=== PATIENT | female | born 1955 | race Hispanic/Latino ===

== ENCOUNTER 2019-11-09 11:19 | Emergency (ER) | payer BC ==
--- OUTSIDE RECORDS SUMMARY | 2019-11-09 11:22 | XMS REPORT ---
:1955 [facility] Address [address] [place] [address] [address] [place] [address] Care Team Providers Name Role Phone Unavailable Unavailable Unavailable Payers Payer Name Policy Type Policy Number Effective Date Expiration Date Problems This patient has no known problems. Allergies, Adverse Reactions, Alerts Allergy Allergy Status Severity Reaction(s) Onset Inactive Treating Comments Name Type Date Date Clinician No Known DA Active U 2018-08 Allergies -18 00:00:0 0 Medications This patient has no known medications.
--- NOTE | 2019-11-09 12:02 | ER ---
Nurse's Notes [facility] Name: Kateryna Medley Age: 64 yrs Sex: Female : 1955 Arrival Date: 11/09/2019 Time: 11:23 Bed 17 Private MD: Diagnosis: Urticaria, unspecified Presentation: 11/08 11:28 Chief complaint: Patient states: rashes all over my arms and body since yesterday. This ca1 morning it went to face. C/O itchiness all over. Denies SOB. Coronavirus screen: The patient has NOT traveled to [place] in the past 14 days. The patient has NOT had contact with known and/or suspected case of Coronavirus. Ebola Screen: Patient negative for fever greater than or equal to 101.5 degrees Fahrenheit, and additional compatible Ebola Virus Disease symptoms Patient denies exposure to infectious person. Patient denies travel to an Ebola-affected area in the 21 days before illness onset. No symptoms or risks identified at this time. Onset: The symptoms/episode began/occurred yesterday. Anaphylaxis evaluation, no signs or symptoms of anaphylaxis were noted. Initial Sepsis Screen: Does the patient meet any 2 criteria? No. Patient's initial sepsis screen is negative. Does the patient have a suspected source of infection? No. Patient's initial sepsis screen is negative. Risk Assessment: Do you want to hurt yourself or someone else? Patient reports no desire to harm self or others. Onset of symptoms was November 08, 2019. Care prior to arrival: None. 11:28 Method Of Arrival: Ambulatory ca1 11:28 Acuity: ERNESTINA 4 ca1 Historical: - Allergies: 11:37 No Known Allergies; ca1 - Home Meds: 11:37 [place] Thyroid 210 mg Oral 1 tab daily [Active]; pantoprazole 40 mg oral TbEC 1 tab ca1 once daily [Active]; magnesium oxide 400 mg Oral cap daily [Active]; triamterene-hydrochlorothiazid 37.5-25 mg Oral cap 1 cap once daily [Active]; valsartan 80 mg oral tab 1 tab once daily [Active]; Byvalson 5mg/80mg 1 tab [Active]; clonazepam 0.5 mg Oral tab [Active]; gabapentin 600 mg oral tab 1 tab 3 times per day [Active]; aspirin 81 mg Oral chew 1 tab once daily [Active]; amitriptyline 25 mg Oral tab 1 tab once daily [Active]; - PMHx: 11:37 Hypertension; Herniated Discs; ca1 - PSHx: 11:37 Cataract Surgery L eye; ca1 - Immunization history:: Adult Immunizations up to date, Pneumococcal vaccine is not up to date, Flu vaccine is up to date. - Social history:: Smoking status: Patient denies any tobacco usage or history of. Screenin:08 Abuse screen: Denies threats or abuse. Denies injuries from another. Nutritional mg2 screening: No deficits noted. Tuberculosis screening: Fall Risk None identified. Assessment: 12:09 General: Appears in no apparent distress. comfortable, Behavior is calm, cooperative. mg2 Pain: Denies pain. Neuro: Level of Consciousness is awake, alert, obeys commands, Oriented to person, place, time, situation. Cardiovascular: Capillary refill < 3 seconds Patient's skin is warm and dry. Respiratory: Airway is patent Respiratory effort is even, unlabored, Respiratory pattern is regular, symmetrical, Breath sounds are clear bilaterally. GI: No signs and/or symptoms were reported involving the gastrointestinal system. : No signs and/or symptoms were reported regarding the genitourinary system. EENT: No signs and/or symptoms were reported regarding the EENT system. Derm: Skin is intact, is healthy with good turgor, Skin is pink, warm \T\ dry. normal, Rash noted that is itchy, red, urticaria, on whole body. Musculoskeletal: Circulation, motion, and sensation intact. Capillary refill. Vital Signs: 11:28 BP 131 / 106; Pulse 77; Resp 18 S; Temp 97.4(TE); Pulse Ox 95% on R/A; Weight 95.71 kg ca1 (R); Height 5 ft. 0 in. (152.40 cm); 11:28 Body Mass Index 41.21 (95.71 kg, 152.40 cm) ca1 ED Course: 11:23 Patient arrived in ED. fj1 11:32 Triage completed. ca1 11:35 Lili Laurent FNP-C is PHCP. snw 11:35 Solitario Grossman MD is Attending Physician. snw 11:37 Arm band placed on right wrist. ca1 11:56 Raffi Vasquez RN is Primary Nurse. mg2 12:08 Patient has correct armband on for positive identification. mg2 12:08 No provider procedures requiring assistance completed. Patient did not have IV access mg2 during this emergency room visit. Administered Medications: 12:04 Drug: predniSONE 40 mg Route: PO; mg2 12:07 Follow up: Response: No adverse reaction; Medication administered at discharge. mg2 12:05 Drug: Atarax 50 mg Route: PO; mg2 12:07 Follow up: Response: No adverse reaction; Medication administered at discharge. mg2 Outcome: 11:58 Discharge ordered by MD. coelho 12:10 Discharged to home ambulatory. mg2 12:10 Condition: stable 12:10 Discharge instructions given to patient, Instructed on discharge instructions, follow up and referral plans. medication usage, Demonstrated understanding of instructions, follow-up care, medications, Prescriptions given X 2. 12:10 Patient left the ED. mg2 Signatures: Lili Laurent, VISION SPECIALIST-C VISION SPECIALIST-Csnw Raffi Vasquez RN RN mg2 Gisele Carballo RN RN ca1 Jovanny Salvador fj1 Corrections: (The following items were deleted from the chart) 11:43 11:28 BP 131 / 106; Pulse 77bpm; Resp 18bpm; Spontaneous; Pulse Ox 95% RA; Temp 76F; ca1 95.71 kg Reported; Height 5 ft. 0 in.; BMI: 41.2; ca1 11:44 11:28 BP 131 / 106; Pulse 77bpm; Resp 18bpm; Spontaneous; Pulse Ox 95% RA; Temp 97.4F ca1 Temporal; 95.71 kg Reported; Height 5 ft. 0 in.; BMI: 41.2; ca1
[2019-11-09] MEDS ORDERED: predniSONE 20 MG TAB ONE (12:03)
--- NOTE | 2019-11-09 12:03 | EDPHYS ---
Physician Documentation [facility] Name: Kateryna Medley Age: 64 yrs Sex: Female : 1955 Arrival Date: 11/09/2019 Time: 11:23 Bed 17 Private MD: ED Physician Solitario Grossman HPI: 11/08 11:53 This 64 yrs old Female presents to ER via Ambulatory with complaints of Hives. snw 11:53 Onset: The symptoms/episode began/occurred suddenly, yesterday, itching became worse, snw rash comes and goes. Associated signs and symptoms: Pertinent negatives: congestion, cough, fever, seizure, sore throat, wheezing. Modifying factors: The patient symptoms are alleviated by nothing. The patient has not experienced similar symptoms in the past. It is unknown whether or not the patient has recently seen a physician. no new medications, only new food was flatbread pizza. Historical: - Allergies: 11:37 No Known Allergies; ca1 - Home Meds: 11:37 [place] Thyroid 210 mg Oral 1 tab daily [Active]; pantoprazole 40 mg oral TbEC 1 tab ca1 once daily [Active]; magnesium oxide 400 mg Oral cap daily [Active]; triamterene-hydrochlorothiazid 37.5-25 mg Oral cap 1 cap once daily [Active]; valsartan 80 mg oral tab 1 tab once daily [Active]; Byvalson 5mg/80mg 1 tab [Active]; clonazepam 0.5 mg Oral tab [Active]; gabapentin 600 mg oral tab 1 tab 3 times per day [Active]; aspirin 81 mg Oral chew 1 tab once daily [Active]; amitriptyline 25 mg Oral tab 1 tab once daily [Active]; - PMHx: 11:37 Hypertension; Herniated Discs; ca1 - PSHx: 11:37 Cataract Surgery L eye; ca1 - Immunization history:: Adult Immunizations up to date, Pneumococcal vaccine is not up to date, Flu vaccine is up to date. - Social history:: Smoking status: Patient denies any tobacco usage or history of. ROS: 11:53 Constitutional: Negative for fever, chills, and weight loss, Eyes: Negative for injury, snw pain, redness, and discharge, ENT: Negative for injury, pain, and discharge, Neck: Negative for injury, pain, and swelling, Cardiovascular: Negative for chest pain, palpitations, and edema, Respiratory: Negative for shortness of breath, cough, wheezing, and pleuritic chest pain, Abdomen/GI: Negative for abdominal pain, nausea, vomiting, diarrhea, and constipation, Back: Negative for injury and pain, : Negative for injury, bleeding, discharge, and swelling, MS/Extremity: Negative for injury and deformity, Neuro: Negative for headache, weakness, numbness, tingling, and seizure, Psych: Negative for depression, anxiety, suicide ideation, homicidal ideation, and hallucinations. 11:53 Skin: Positive for rash, diffusely. Exam: 11:49 Constitutional: This is a well developed, well nourished patient who is awake, alert, snw and in no acute distress. Eyes: Pupils equal round and reactive to light, extra-ocular motions intact. Lids and lashes normal. Conjunctiva and sclera are non-icteric and not injected. Cornea within normal limits. Periorbital areas with no swelling, redness, or edema. ENT: Nares patent. No nasal discharge, no septal abnormalities noted. Tympanic membranes are normal and external auditory canals are clear. Oropharynx with no redness, swelling, or masses, exudates, or evidence of obstruction, uvula midline. Mucous membranes moist. Neck: Trachea midline, no thyromegaly or masses palpated, and no cervical lymphadenopathy. Supple, full range of motion without nuchal rigidity, or vertebral point tenderness. No Meningismus. Chest/axilla: Normal chest wall appearance and motion. Nontender with no deformity. No lesions are appreciated. Cardiovascular: Regular rate and rhythm with a normal S1 and S2. No gallops, murmurs, or rubs. Normal PMI, no JVD. No pulse deficits. Respiratory: Lungs have equal breath sounds bilaterally, clear to auscultation and percussion. No rales, rhonchi or wheezes noted. No increased work of breathing, no retractions or nasal flaring. Abdomen/GI: Soft, non-tender, with normal bowel sounds. No distension or tympany. No guarding or rebound. No evidence of tenderness throughout. Back: No spinal tenderness. No costovertebral tenderness. Full range of motion. MS/ Extremity: Pulses equal, no cyanosis. Neurovascular intact. Full, normal range of motion. Neuro: Awake and alert, GCS 15, oriented to person, place, time, and situation. Cranial nerves II-XII grossly intact. Motor strength 5/5 in all extremities. Sensory grossly intact. Cerebellar exam normal. Normal gait. Psych: Awake, alert, with orientation to person, place and time. Behavior, mood, and affect are within normal limits. 11:49 Head/Face: Normocephalic, atraumatic. 11:49 Skin: Appearance: normal except for affected area, urticaria, and is diffusely located. Vital Signs: 11:28 BP 131 / 106; Pulse 77; Resp 18 S; Temp 97.4(TE); Pulse Ox 95% on R/A; Weight 95.71 kg ca1 (R); Height 5 ft. 0 in. (152.40 cm); 11:28 Body Mass Index 41.21 (95.71 kg, 152.40 cm) ca1 MDM: 11:42 Patient medically screened. snw 11:59 Data reviewed: vital signs, nurses notes. Data interpreted: Pulse oximetry: on room air snw is 95 %. Interpretation: acceptable. Counseling: I had a detailed discussion with the patient and/or guardian regarding: the historical points, exam findings, and any diagnostic results supporting the discharge/admit diagnosis, the need for outpatient follow up, to return to the emergency department if symptoms worsen or persist or if there are any questions or concerns that arise at home. Special discussion: I have referred the patient to see his PCP for further evaluation of high blood pressure. Based on the history and exam findings, there is no indication for further emergent testing or inpatient evaluation. I discussed with the patient/guardian the need to see the meter tester primary for further evaluation of the symptoms. I discussed with the patient/guardian the need to see the primary care provider for further evaluation of the symptoms. Administered Medications: 12:04 Drug: predniSONE 40 mg Route: PO; mg2 12:07 Follow up: Response: No adverse reaction; Medication administered at discharge. mg2 12:05 Drug: Atarax 50 mg Route: PO; mg2 12:07 Follow up: Response: No adverse reaction; Medication administered at discharge. mg2 Disposition: 11/09/19 11:58 Discharged to Home. Impression: Urticaria, unspecified. - Condition is Stable. - Discharge Instructions: Allergies, Adult, Hives. - Prescriptions for Zyrtec 10 mg Oral Tablet - take 1 tablet by ORAL route once daily As needed; 20 tablet. Prednisone 20 mg Oral Tablet - take 2 tablet by ORAL route once daily for 5 days; 10 tablet. - Medication Reconciliation Form, Thank You Letter, Antibiotic Education, Prescription Opioid Use form. - Follow up: Emergency Department; When: As needed; Reason: Worsening of condition. Follow up: Private Physician; When: 2 - 3 days; Reason: Recheck today's complaints, Continuance of care, Re-evaluation by your physician. Addendum: 11/15/2019 01:28 Co-signature as Attending Physician, Solitario Grossman MD. m a2 Signatures: Lili Laurent, DEMOGRAPHIC ANALYST-C DEMOGRAPHIC ANALYST-Csnw Solitario Grossman MD MD ma2 Raffi Vasquez, RN RN mg2 Gisele Carballo RN RN ca1 Corrections: (The following items were deleted from the chart) 11/08 12:10 11:58 11/09/2019 11:58 Discharged to Home. Impression: Urticaria, unspecified. mg2 Condition is Stable. Forms are Medication Reconciliation Form, Thank You Letter, Antibiotic Education, Prescription Opioid Use. Follow up: Emergency Department; When: As needed; Reason: Worsening of condition. Follow up: Private Physician; When: 2 - 3 days; Reason: Recheck today's complaints, Continuance of care, Re-evaluation by your physician. snw
[2019-11-09] MEDS ORDERED: hydrOXYzine HCL 25 MG TAB ONE (12:04)
[2019-11-09 12:54] VITALS: BP 131/106; TEMP 97.4; O2SAT 95
== END 2019-11-09 12:10 | disposition home or self-care (01) ==
LOC: ER 11:19
DX: L50.9 Urticaria, unspecified (principal); I10 Essential (primary) hypertension; Z79.82 Long term (current) use of aspirin
CPT/HCPCS: 99283; J7512

== ENCOUNTER 2019-11-16 09:17 | Emergency (ER) | payer BC ==
--- OUTSIDE RECORDS SUMMARY | 2019-11-16 09:26 | XMS REPORT ---
:1955 Author [facility] Address [address] [place] [address] [address] [place] [address] Care Team Providers Name Role Phone Unavailable [...]
[2019-11-16] MEDS ORDERED: METHYLPREDNISOLONE 125 MG INJ ONE (10:01)
[2019-11-16] MEDS ORDERED: DIPHENHYDRAMINE 50 MG/ML VIAL ONE (10:01)
[2019-11-16] MEDS ORDERED: FAMOTIDINE 20 MG/2 ML VIAL IV ONE (10:01)
--- NOTE | 2019-11-16 10:38 | ER ---
Nurse's Notes [facility] Name: Kateryna Medley Age: 64 yrs Sex: Female : 1955 Arrival Date: 11/16/2019 Time: 09:18 Bed 19 Private MD: Diagnosis: Urticaria Presentation: 11/15 09:36 Chief complaint: Patient states: "I've got more stress going on around the house ss lately, but I've had a cold for over a month. I'm still dealing with some congestion and these hives keep coming up. I was seen in the ER last Friday and I've taken all the medication they gave me, and the rash went away, but it's back.". Coronavirus screen: The patient has NOT traveled to a country currently being monitored by the CDC within the last 14 days. Ebola Screen: Patient denies exposure to infectious person. Patient denies travel to an Ebola-affected area in the 21 days before illness onset. Onset: The symptoms/episode began/occurred 1 month(s) ago. Anaphylaxis evaluation, no signs or symptoms of anaphylaxis were noted. Initial Sepsis Screen: Does the patient meet any 2 criteria? No. Patient's initial sepsis screen is negative. Does the patient have a suspected source of infection? No. Patient's initial sepsis screen is negative. Risk Assessment: Do you want to hurt yourself or someone else? Patient reports no desire to harm self or others. 09:36 Method Of Arrival: Ambulatory ss 09:36 Acuity: ERNESTINA 4 ss 10:10 Onset of symptoms is unknown. wh Historical: - Allergies: 09:39 No Known Allergies; ss - Home Meds: 09:39 amitriptyline 25 mg Oral tab 1 tab once daily [Active]; [place] Thyroid 210 mg Oral 1 ss tab daily [Active]; aspirin 81 mg Oral chew 1 tab once daily [Active]; Byvalson 5mg/80mg 1 tab [Active]; clonazepam 0.5 mg Oral tab [Active]; magnesium oxide 400 mg Oral cap daily [Active]; triamterene-hydrochlorothiazid 37.5-25 mg Oral cap 1 cap once daily [Active]; valsartan 80 mg Oral tab 1 tab once daily [Active]; pantoprazole 40 mg Oral TbEC 1 tab once daily [Active]; gabapentin 600 mg Oral tab 1 tab 3 times per day [Active]; - PMHx: 09:39 Hypertension; herniated discs; Anxiety; Hypothyroidism; GERD; ss - PSHx: 09:39 cataracts; ss - Immunization history:: Adult Immunizations up to date. - Social history:: Smoking status: Patient denies any tobacco usage or history of. Screenin:54 Abuse screen: Denies threats or abuse. Denies injuries from another. Nutritional ss screening: No deficits noted. Tuberculosis screening: Never had TB. Fall Risk None identified. Assessment: 09:54 General: Appears in no apparent distress. comfortable, Behavior is calm, cooperative. ss Pain: Complains of pain in throat Pain currently is 5 out of 10 on a pain scale. Quality of pain is described as sore Pain began 1 moth ago Is continuous. Neuro: Level of Consciousness is awake, alert, obeys commands, Oriented to person, place, time, situation. Cardiovascular: Capillary refill < 3 seconds is brisk in bilateral fingers. Respiratory: Airway is patent Trachea midline Respiratory effort is even, unlabored, Respiratory pattern is regular, symmetrical, Breath sounds are clear bilaterally. GI: Patient currently denies diarrhea, nausea, vomiting. : No signs and/or symptoms were reported regarding the genitourinary system. EENT: Nares are clear Throat is clear. Derm: Skin is intact, is healthy with good turgor, Skin is dry, Skin is pink, warm \\T\\ dry. normal, Rash noted that is red, patchy on hands and between eyes. Pt reports rash has been ongoing for 1 month. Improved after taking medication that ER had prescribed her a week ago, but now the rash is back. Musculoskeletal: Circulation, motion, and sensation intact. Range of motion: intact in all extremities, Swelling absent. 10:30 Reassessment: Patient appears in no apparent distress at this time. Patient and/or wh family updated on plan of care and expected duration. Pain level reassessed. Patient is alert, oriented x 3, equal unlabored respirations, skin warm/dry/pink. Vital Signs: 09:36 BP 125 / 62; Pulse 89; Resp 16; Pulse Ox 98% on R/A; Weight 95.71 kg; Height 5 ft. 0 ss in. (152.40 cm); Pain 5/10; 09:41 Temp 98.6(O); jp3 10:15 BP 136 / 69; Pulse 63; Resp 17; Pulse Ox 100% on R/A; tw2 10:40 BP 125 / 64; Pulse 62; Resp 17; Pulse Ox 99% on R/A; tw2 09:36 Body Mass Index 41.21 (95.71 kg, 152.40 cm) ED Course: 09:18 Patient arrived in ED. rg4 09:38 Triage completed. ss 09:39 Arm band placed on right wrist. ss 09:43 Giovanni Wiggins PA is PHCP. jr8 09:43 Norman Durant MD is Attending Physician. jr8 09:45 Bed in low position. Call light in reach. Side rails up X 1. Warm blanket given. Verbal jp3 reassurance given. Pulse ox on. NIBP on. 09:46 Patient maintains SpO2 saturation greater than 95% on room air. jp3 09:54 Britt Manning RN is Primary Nurse. tw2 10:02 Inserted saline lock: 20 gauge in right antecubital area, using aseptic technique. tw2 ,using aseptic technique. by Tien Higginbotham, EMS student observed by myself (ELIE De La Torre), pt tolerated well. 10:45 Removal of peripheral IV. Catheter intact, dressing applied. 10:50 No provider procedures requiring assistance completed. 10:51 IV discontinued, intact, bleeding controlled, No redness/swelling at site. wh Administered Medications: 10:02 Drug: Pepcid 20 mg Route: IVP; Site: right antecubital; tw2 10:52 Follow up: Response: No adverse reaction 10:04 Drug: Benadryl 25 mg Route: IVP; Site: right antecubital; tw2 10:51 Follow up: Response: No adverse reaction 10:07 Drug: SOLU-Medrol 125 mg Route: IVP; Site: right antecubital; tw2 10:51 Follow up: Response: No adverse reaction Outcome: 10:36 Discharge ordered by . jr8 10:50 Discharged to home ambulatory. 10:50 Condition: stable 10:50 Discharge instructions given to patient, Instructed on discharge instructions, follow up and referral plans. medication usage, POC Demonstrated understanding of instructions, follow-up care, medications, POC Prescriptions given X 3. 10:52 Patient left the ED. Signatures: Jennyfer Kruse, RN RN ss Giovanni Wiggins PA PA jr8 Britt Manning RN RN tw2 Bree Bradford4 Olimpia Burden Jacob jp3
--- NOTE | 2019-11-16 10:38 | EDPHYS ---
Physician Documentation [facility] Name: Kateryna Medley Age: 64 yrs Sex: Female : 1955 Arrival Date: 11/16/2019 Time: 09:18 Bed 19 Private MD: ED Physician Norman Durant HPI: 11/15 09:50 This 64 yrs old Female presents to ER via Ambulatory with complaints of Hives, jr8 Breathing Difficulty. 09:50 The patient's rash thought to be caused by an unknown cause. The rash is located on the jr8 face, right hand, left hand, right arm and left arm. The rash can be described as erythematous, macular. Onset: The symptoms/episode began/occurred acutely, today. Associated signs and symptoms: Pertinent positives: itching. Severity of symptoms: At their worst the symptoms were mild in the emergency department the symptoms are unchanged. The patient has experienced a previous episode. The patient has not recently seen a physician. Patient stated that she had similar reaction last week and was put on medications. Now that she finished them it came back. Denies new meds, allergies, foods, detergents, close, lotions, make up etc.... Denies camping or recent travel. Historical: - Allergies: 09:39 No Known Allergies; ss - Home Meds: :39 amitriptyline 25 mg Oral tab 1 tab once daily [Active]; [place] Thyroid 210 mg Oral 1 ss tab daily [Active]; aspirin 81 mg Oral chew 1 tab once daily [Active]; Byvalson 5mg/80mg 1 tab [Active]; clonazepam 0.5 mg Oral tab [Active]; magnesium oxide 400 mg Oral cap daily [Active]; triamterene-hydrochlorothiazid 37.5-25 mg Oral cap 1 cap once daily [Active]; valsartan 80 mg Oral tab 1 tab once daily [Active]; pantoprazole 40 mg Oral TbEC 1 tab once daily [Active]; gabapentin 600 mg Oral tab 1 tab 3 times per day [Active]; - PMHx: 09:39 Hypertension; herniated discs; Anxiety; Hypothyroidism; GERD; ss - PSHx: 09:39 cataracts; ss - Immunization history:: Adult Immunizations up to date. - Social history:: Smoking status: Patient denies any tobacco usage or history of. ROS: 09:50 Eyes: Negative for injury, pain, redness, and discharge, ENT: Negative for injury, jr8 pain, and discharge, Neck: Negative for injury, pain, and swelling, Cardiovascular: Negative for chest pain, palpitations, and edema, Respiratory: Negative for shortness of breath, cough, wheezing, and pleuritic chest pain, Abdomen/GI: Negative for abdominal pain, nausea, vomiting, diarrhea, and constipation, Back: Negative for injury and pain, MS/Extremity: Negative for injury and deformity, Neuro: Negative for headache, weakness, numbness, tingling, and seizure. 09:50 Skin: Positive for rash. Exam: 09:50 Eyes: Pupils equal round and reactive to light, extra-ocular motions intact. Lids and jr8 lashes normal. Conjunctiva and sclera are non-icteric and not injected. Cornea within normal limits. Periorbital areas with no swelling, redness, or edema. ENT: Nares patent. No nasal discharge, no septal abnormalities noted. Tympanic membranes are normal and external auditory canals are clear. Oropharynx with no redness, swelling, or masses, exudates, or evidence of obstruction, uvula midline. Mucous membranes moist. Neck: Trachea midline, no thyromegaly or masses palpated, and no cervical lymphadenopathy. Supple, full range of motion without nuchal rigidity, or vertebral point tenderness. No Meningismus. Cardiovascular: Regular rate and rhythm with a normal S1 and S2. No gallops, murmurs, or rubs. Normal PMI, no JVD. No pulse deficits. Respiratory: Lungs have equal breath sounds bilaterally, clear to auscultation and percussion. No rales, rhonchi or wheezes noted. No increased work of breathing, no retractions or nasal flaring. Abdomen/GI: Soft, non-tender, with normal bowel sounds. No distension or tympany. No guarding or rebound. No evidence of tenderness throughout. Back: No spinal tenderness. No costovertebral tenderness. Full range of motion. MS/ Extremity: Pulses equal, no cyanosis. Neurovascular intact. Full, normal range of motion. Neuro: Awake and alert, GCS 15, oriented to person, place, time, and situation. Cranial nerves II-XII grossly intact. Motor strength 5/5 in all extremities. Sensory grossly intact. Cerebellar exam normal. Normal gait. 09:50 Skin: rash a mild rash is noted, rash can be described as erythematous, macular, on the face, right hand, left hand, right arm and left arm. Vital Signs: 09:36 BP 125 / 62; Pulse 89; Resp 16; Pulse Ox 98% on R/A; Weight 95.71 kg; Height 5 ft. 0 ss in. (152.40 cm); Pain 5/10; 09:41 Temp 98.6(O); jp3 10:15 BP 136 / 69; Pulse 63; Resp 17; Pulse Ox 100% on R/A; tw2 10:40 BP 125 / 64; Pulse 62; Resp 17; Pulse Ox 99% on R/A; tw2 09:36 Body Mass Index 41.21 (95.71 kg, 152.40 cm) ss MDM: 09:47 Patient medically screened. jr8 10:35 Data reviewed: vital signs, nurses notes, and as a result, I will discharge patient. jr8 Data interpreted: Pulse oximetry: on room air is 100 %. Interpretation: normal. Counseling: I had a detailed discussion with the patient and/or guardian regarding: the historical points, exam findings, and any diagnostic results supporting the discharge/admit diagnosis, lab results, the need for outpatient follow up, a principal developer, to return to the emergency department if symptoms worsen or persist or if there are any questions or concerns that arise at home. Response to treatment: the patient's symptoms have markedly improved after treatment. 11/15 09:48 Order name: IV; Complete Time: 10:13 [facility] Administered Medications: 10:02 Drug: Pepcid 20 mg Route: IVP; Site: right antecubital; tw2 10:52 Follow up: Response: No adverse reaction 10:04 Drug: Benadryl 25 mg Route: IVP; Site: right antecubital; tw2 10:51 Follow up: Response: No adverse reaction 10:07 Drug: SOLU-Medrol 125 mg Route: IVP; Site: right antecubital; tw2 10:51 Follow up: Response: No adverse reaction Disposition: 11:04 Co-signature as Attending Physician, Norman Durant MD. rn Disposition: 11/16/19 10:36 Discharged to Home. Impression: Urticaria. - Condition is Stable. - Discharge Instructions: Anaphylactic Reaction, Adult, Hives. - Prescriptions for Hydroxyzine HCl 25 mg Oral Tablet - take 1 tablet by ORAL route every 6 hours As needed; 30 tablet. Pepcid 20 mg Oral Tablet - take 1 tablet by ORAL route every 12 hours for 5 days; 10 tablet. Prednisone 20 mg Oral Tablet - take 2 tablet by ORAL route once daily for 5 days; 10 tablet. - Medication Reconciliation Form, Thank You Letter, Antibiotic Education, Prescription Opioid Use form. - Follow up: Private Physician; When: 2 - 3 days; Reason: Recheck today's complaints, Continuance of care, Re-evaluation by your physician. - Problem is new. - Symptoms have improved. Signatures: Norman Durant MD MD rn Jennyfer Kruse RN RN Giovanni Cha PA PA jr8 Britt Manning RN RN tw2 Olimpia Burden Corrections: (The following items were deleted from the chart) 10:52 10:36 11/16/2019 10:36 Discharged to Home. Impression: Urticaria. Condition is Stable. wh Forms are Medication Reconciliation Form, Thank You Letter, Antibiotic Education, Prescription Opioid Use. Follow up: Private Physician; When: 2 - 3 days; Reason: Recheck today's complaints, Continuance of care, Re-evaluation by your physician. Problem is new. Symptoms have improved. jr8
[2019-11-16 11:07] VITALS: TEMP 98.6
[2019-11-16 11:11] VITALS: BP 125/64; O2SAT 99
== END 2019-11-16 10:52 | disposition home or self-care (01) ==
LOC: ER 09:17
DX: L50.9 Urticaria, unspecified (principal); I10 Essential (primary) hypertension; E03.9 Hypothyroidism, unspecified; K21.9 Gastro-esophageal reflux disease without esophagitis
CPT/HCPCS: 96375; 96374; 99284; J1200; J2930

== ENCOUNTER 2020-12-04 10:39 | Observation (INO) | payer BC ==
[2020-12-04] MEDS ORDERED: Ringers Lactate 1,000 ML IV ONE (11:21)
[2020-12-04] MEDS ORDERED: FENTANYL CITR 100 MCG/2 ML ONE ×2 (12:03→13:15)
[2020-12-04] MEDS ORDERED: MIDAZOLAM HCL 2 MG/2 ML INJ ONE (12:03)
[2020-12-04] MEDS ORDERED: CELECOXIB 100 MG CAPSULE ONE (12:03)
[2020-12-04] MEDS ORDERED: ACETAMINOPHEN 500 MG TAB ONE (12:03)
[2020-12-04] MEDS ORDERED: propofoL 200 MG/20 ML VIAL IV ONE (12:03)
[2020-12-04] MEDS ORDERED: ROCURONIUM 50 MG/5 ML VIAL IV ONE (12:04)
[2020-12-04] MEDS ORDERED: LIDOCAINE 1% MPF 5 ML VIAL ONE (12:04)
--- NOTE | 2020-12-04 12:19 | P.HP ---
Certification for Inpatient Patient admitted to: Observation With expected LOS: <2 Midnights Patient will require the following post-hospital care: None Practitioner: I am a practitioner with admitting privileges, knowledge of patient current condition, hospital course, and medical plan of care. Services: Services provided to patient in accordance with Admission requirements found in Title 42 Section 412.3 of the Code of Federal Regulations Patient History Date of Service: 12/04/20 Reason for admission: Postoperative abdominal pain History of Present Illness: This patient has had recurrent episodes of right upper quadrant abdominal pain, radiating into her back. The pain is has intensified both in strength and a in frequency. On workup was found have chronic cholecystitis. Allergies No Known Allergies Allergy (Verified 12/01/20 11:39) Home medications list reviewed: Yes Home Medications: Atenolol [Tenormin] 25 mg PO BID 12/01/20 Biotin 10,000 mcg PO DAILY 12/01/20 Cholecalciferol (Vitamin D3) [Vitamin D3] 50 mcg PO DAILY 12/01/20 Cranberry Conc/C/Bacill Coag [Cranberry Tablet] 1 tab PO DAILY 12/01/20 Cyanocobalamin [Vitamin B-12] 1,000 mcg PO DAILY 12/01/20 Magnesium Oxide [Magnesium] 400 mg PO DAILY 12/01/20 Montelukast [Singulair] 10 mg PO BEDTIME 12/01/20 Olmesartan Medoxomil 20 mg PO BEDTIME 12/01/20 Pantoprazole [Protonix Tab] 40 mg PO DAILY 12/01/20 Thyroid,Pork [Surprise Thyroid] 210 mg PO DAILY 12/01/20 Turmeric Root Extract [Turmeric Curcumin] 1,000 mg PO DAILY 12/01/20 Zinc 25 mg PO DAILY 12/01/20 clonazePAM [Klonopin] 0.5 mg PO BEDTIME 12/01/20 hydroCHLOROthiazide [Hydrochlorothiazide*] 12.5 mg PO DAILY 12/01/20 - Past Medical/Surgical History Past Medical History: Reviewed- Non-Contributory Past Surgical History: Reviewed- Non-Contributory - Social History Place of Residence: Home Review of Systems 10-point ROS is otherwise unremarkable Physical Examination - Vital Signs Temperature: 98 F Blood Pressure: 128/49 Pulse: 63 Respirations: 16 - Physical Exam General: In no apparent distress HEENT: Sclerae nonicteric Respiratory: Other (Air entry equal bilaterally) Cardiovascular: Normal S1 S2 Gastrointestinal: Other (Soft no tenderness today. No organomegaly.) - Studies Imagings Data: Abnormal ultrasound Assessment and Plan - Plan This patient, has chronic cholecystitis with cholelithiasis. She presents now for elective surgery. She will be admitted postoperatively for observation pain control with anticipated discharge in the a.m.. I have discussed her surgery a length. We will do a laparoscopic cholecystectomy with cholangiogram. This procedure have been described. The possibility of bleeding, infection, injury to bile ducts blood vessels intestines has been described. The possible need for further surgeries and procedures was discussed. She understands and wants us to proceed. - Advance Directives Does patient have a Living Will: No Does patient have a Durable POA for Healthcare: No
[2020-12-04] MEDS ORDERED: CEFOXITIN/SWI 1gm 1 GM/10 ML SYR ONE (12:28)
[2020-12-04] MEDS ORDERED: dexAMETHasone 10 MG/ML VIAL ONE (12:52)
[2020-12-04] MEDS ORDERED: ONDANSETRON 4 MG/2 ML VIAL ONE ×2 (13:14→14:21)
[2020-12-04] MEDS ORDERED: KETOROLAC 30 MG/ML INJ ONE (13:14)
[2020-12-04] MEDS ORDERED: GLYCOPYRROLATE 0.2 MG/ML SYR ONE (13:38)
[2020-12-04] MEDS ORDERED: NEOSTIGMINE 1 MG/ML -5 ML ONE (13:38)
[2020-12-04] MEDS: FENTANYL CITR 100 MCG/2 ML ONE ×2 (14:06→14:29)
--- NOTE | 2020-12-04 14:08 | P.OP ---
Preoperative diagnosis: Chronic cholecystitis with cholelithiasis Postoperative diagnosis: The same Primary procedure: Laparoscopic cholecystectomy Secondary procedure: Cholangiogram Other procedure(s): Tasha block Anesthesia: General Estimated blood loss: Less than 10 cc Specimen: 1 gallbladder and content Operative Technique: The patient was brought to the operating room and placed supine on the table. After the induction of adequate general endotracheal anesthesia, the area of the abdomen was prepped with a DuraPrep solution, and draped in the usual aseptic manner. A subumbilical incision was made. This brought down through the skin and subcutaneous tissue. The Visiport was used to enter the peritoneal cavity and created pneumoperitoneum to approximately 12 mm of mercury. Under direct vision a 5 mm trocar was placed in the upper midline, and 2 other 5 mm trocars on the right lateral side. The patient's head was then elevated and rolled towards the photolith operator's side. We could see a chronically inflamed gallbladder. The colon was noted be quite distended in this area. After increasing the reverse Trendelenburg, we had a good view of the right upper quadrant. A grasper was placed on the fundus of the gallbladder. Another 1 was placed down by Pao's pouch. Applying lateral traction we were able to dissect and expose the cystic duct and artery. Having obtained the critical view, the artery was dealt with 1st. It was clipped and divided in the usual manner. A clip was then placed between the gallbladder and the cystic duct. An opening was made into the cystic duct. We attempted then to pass the cholangiocath into the cystic duct. Having done so, we obtained a cholangiogram. The initial reading was some optimal. The catheter passed easily however into the duodenum with no evidence of obstruction or filling defects. The catheter was then withdrawn. Clips were now placed on the distal portion of the cystic duct. The cystic duct was then divided. The gallbladder was now dissected free from the liver bed, placed into an Endo-Catch, and brought out through the umbilical trocar site. The gallbladder fossa was inspected to ensure adequate hemostasis. It was irrigated with a saline solution and the irrigant aspirated from the peritoneal cavity. 0.25% Marcaine was aerosolized into the right upper quadrant and the gallbladder fossa. We also did a Tasha block injecting 0.25% Marcaine under direct vision into the subfascial plane. The umbilical trocar site was now approximated with an Endo Close and an absorbable sutures. The pneumoperitoneum was then collapsed, the suture tied, and david applied to the skin. A further 0.25% Marcaine was injected around are incision sites. At the end of the procedure the patient was in a stable condition when sent to the recovery room. Needle sponge instrument count were correct. 1 specimen was sent for histopathology. Transferred to: Recovery Room Condition: Good
[2020-12-04] MEDS ORDERED: MORPHINE 4 MG/ML SYR IV PRN (14:12)
[2020-12-04] MEDS ORDERED: SUCCINYLCHOLINE 20 MG/ML (10 ML) IV ONE (14:22)
--- OUTSIDE RECORDS SUMMARY | 2020-12-04 14:26 | XMS REPORT | Continuity of Care Document ---
:1955 Author Organization [facility] t Address [address] [place] [address] Care Team Providers Name Role Phone Magda Manning MD Attending Clinician Doctor Unassigned, Name Attending Clinician Unavailable Pob, Lab Main Attending Clinician Unavailable Payers Payer Name Policy Type Policy Number Effective Date Expiration Date S ource Problems This patient has no known problems. Allergies, Adverse Reactions, Alerts Allergy Allergy Status Severity Reaction(s) Onset Inactive Treating Comm ents Source Name Type Date Date Clinician No Known DA Active U 2017-09 [facility] Allergie 2-18 Clear s 00:00: Stephens 00 [facility] Medications This patient has no known medications. Procedures This patient has no known procedures. Encounters Start End Encounter Admission Attending Care Care Encounter Source Date/Time Date/Time Type Type Clinicians Facility Department ID 2020-10-09 2020[facility]10-09 [facility] [place] [id number] 18:30:00 23:59:00 Encounter Evangelina go [id number] [place] [id number] [place] [id number] 2020-10-09 2020-10-09 Letter Doctor BRUNSON [id number] 00:00:00 00:00:00 (Out) Unassigned, MINO [id number] [place] [facility] [id number] 2020-10-06 2020-10-06 Chief Medical Officer Mathieu Ocasio [facility] [id number] 09:19:36 09:34:36 Visit Lab Main [place] [id number] [place] [id number] [facility] [phone] [address] Results This patient has no known results.
--- NOTE | 2020-12-04 14:29 | RAD REPORT ---
EXAM DESCRIPTION: RAD - Cholangiogram Oper-Xray Or - 12/04/2020 2:21 pm CLINICAL HISTORY: LUCA Abdominal pain COMPARISON: No comparisons FINDINGS: Common bile duct is somewhat difficult to visualize. Injection was performed by referring physician intraoperatively. The visualed portions of the common bile duct do not demonstrate evidence of stone. Total fluoro time: 0.8 minutes. Twenty-five images submitted.
[2020-12-04 14:48] VITALS: BMI 42.3
[2020-12-04 15:15] VITALS: O2SAT 97
[2020-12-04] MEDS: HYDROCODONE/APAP 7.5/325 MG TAB PO PRN (20:55)
[2020-12-05 05:12] VITALS: BP 118/58; TEMP 97
[2020-12-05] MEDS: HYDROCODONE/APAP 7.5/325 MG TAB PO PRN (08:47)
== END 2020-12-05 12:46 | disposition home or self-care (01) ==
LOC: OR 10:39 → 2ND 14:12
PROVIDERS: ADMIT Surgery; ATTEND Surgery
PROC: 0FT44ZZ Resection of Gallbladder, Percutaneous Endoscopic Approach (ICD-10-PCS; principal; 2020-12-04 12:00)
DX: K80.10 Calculus of gallbladder with chronic cholecystitis without obstruction (principal); Z20.822 Contact with and (suspected) exposure to COVID-19; I10 Essential (primary) hypertension; K21.9 Gastro-esophageal reflux disease without esophagitis; E07.9 Disorder of thyroid, unspecified
CPT/HCPCS: 88304; 74300; 94010; 47563; U0003; J2704; J0330; J2250; J3010 ×3; J1100; J2710; J7120; J2405 ×2; G0378; G0379

== ENCOUNTER 2021-01-12 08:33 | Day surgery (SDC) | payer BC ==
[2021-01-12] MEDS ORDERED: Zoledronic Acid/Mannitol/Water 5 MG/100 ML INFUS.BOT IV ONE (09:00)
[2021-01-12 10:40] VITALS: BP 130/57; TEMP 97.3; O2SAT 97; BMI 41.8
== END 2021-01-12 09:20 | disposition home or self-care (01) ==
LOC: DS 08:33
PROVIDERS: ATTEND Clinical Nurse Specialist Women's Health
DX: M81.0 Age-related osteoporosis without current pathological fracture (principal)
CPT/HCPCS: 96365; J3489

== ENCOUNTER 2021-12-24 06:23 | Observation (INO) | payer OTHER ==
--- OUTSIDE RECORDS SUMMARY | 2021-12-24 06:27 | XMS REPORT | Continuity of Care Document ---
:1955 Author Organization [facility] t Address [address] [place] [address] Care Team Providers Name Role Phone Kirby Jin MD Primary Care Physician Rick DELGADILLO, T Attending Clinician Unavailable Provider, Db Urgent Care Attending Clinician Unavailable Only, Db Test Attending Clinician Unavailable Anika HUNTER GUIDE Attending Clinician ANIKA Attending Clinician Unavailable Doctor Unassigned, Name Attending Clinician Unavailable Magda Cartwright MD Attending Clinician Magda CARTWRIGHT Attending Clinician Unavailable Pob, Lab Main Attending Clinician Unavailable Payers Payer Name Policy Type Policy Number Effective Date Expiration Date Loree seay [employer] PPO I [id number] 00:00:00 [facility] [id number] 2018 00:00:00 Problems This patient has no known problems. Allergies, Adverse Reactions, Alerts Allergy Allergy Status Severity Reaction(s) Onset Inactive Treating Comm ents Source Name Type Date Date Clinician No Known DA Active U 2017-09 [facility] Allergie 2-18 Clear s 00:00: [place] 00 [facility] NO KNOWN Drug Active Univers ALLERGIE Class ity [facility] Social History Social Habit Start Date Stop Date Quantity Comments Source Exposure to Yes [facility] SARS-CoV-2 (event) Medica l Branch Sex Ass[birth year] [facility] 00:00:00 00:00:00 Medical Branch Smoking Status Start Date Stop Date Source Unknown if ever smoked [facility] Medications This patient has no known medications. Immunizations Ordered Filled Immunization Date Status Comments Sour e Immunization Name Name SARS-COV-2 COVID-19 2020-11-12 Completed Unive rsity of MODERNA VACCINE 00:00:00 [facility] Branch SARS-COV-2 COVID-19 2020-11-12 Completed Unive rsity of MODERNA VACCINE 00:00:00 [facility] Branch SARS-COV-2 COVID-19 2020-11-12 Completed Unive rsity of MODERNA VACCINE 00:00:00 [facility] Branch SARS-COV-2 COVID-19 2020-11-12 Completed Unive rsity of MODERNA VACCINE 00:00:00 [facility] Branch SARS-COV-2 COVID-19 2020-10-15 Completed Unive rsity of MODERNA VACCINE 00:00:00 [facility] Branch SARS-COV-2 COVID-19 2020-10-15 Completed Unive rsity of MODERNA VACCINE 00:00:00 [facility] Branch SARS-COV-2 COVID-19 2020-10-15 Completed Unive rsity of MODERNA VACCINE 00:00:00 [facility] Branch SARS-COV-2 COVID-19 2020-10-15 Completed Unive rsity of MODERNA VACCINE 00:00:00 [facility] Procedures Procedure Date / Time Performed Performing Clinician [facility] e NOTICE OF BILLING 2021-09-18 18:34:46 Doctor Unassigned, No Univ ersity [facility] PRACTICES FOR Name Medical Branch MEDICARE PATIENTS US ABDOMEN COMPLETE 2020-10-10 01:04:09 Onel Cartwright Un iversity of [facility] Encounters Start End Encounter Admission Attending Care Care Encounter Source Date/Time Date/Time Type Type Clinicians Facility Department ID 2021-09-20 2021-09-20 NANNETTE Miller [id number] Univers 00:00:00 00:00:00 (Out) Yeny HERZOG [id number] it y of HOSPITAL [id number] [place] as [id number] [facility] [address] 2021-09-20 2021-09-20 Telephone Provider, [facility] 1.2.840.114 [id number] Univers 00:00:00 00:00:00 Ang Db HEALTH [id number] it y of Urgent Care [place] [id number] [place] MATIAS?BLEA [id number] [address] MEDICAL OFFICE BUILDING 2021-09-18 2021-09-18 Laboratory Only, Ang Db Test [facility] 1.2.8 40.114 [id number] Univers 12:45:00 13:00:00 Only Eugenia Grecotany [facility] [id number] ity of [place] [id number] [place] as MATIAS?BLEA [id number] [address] OFFICE [facility] 2021-09-18 2021-09-18 Outpatient R [facility] [id number] Univers 12:45:00 12:45:00 [id number] ity of [facility] 2021-09-18 2021-09-18 [facility] [id number] Univers 12:45:00 12:45:00 SANIYA sherriemarisela o f [facility] 2021-09-18 2021-09-18 Orders Doctor NANNETTE 1.2.840.114 [id number] Univers 00:00:00 00:00:00 Only Unassigned, MINO [id number] ity of [place] [facility] [id number] [place] as [phone] [facility] 009 Branch 2020-11-12 2020-11-12 Outpatient [facility] [id number] Univers 09:15:00 09:15:00 ity of [facility] 2020-10-15 2020-10-15 Outpatient [facility] [id number] Univers 09:30:00 09:30:00 ity of [facility] 2020-10-09 2020-10-09 [facility] 1.2.840.114 [id number] 18:30:00 23:59:00 Onel Ingram [id number] [place] [id number] [place] [id number] 2020-10-09 2020-10-09 [facility] 1.2.840.114 [id number] Univers 18:30:00 23:59:00 Encounter abbi Onel Wyatt [id number] ity of [place] [id number] [facility] [id number] [facility] [address] [place] 2020-10-09 2020-10-09 Outpatient R [facility] [id number] Univers 18:30:00 18:30:00 Abbi ONEL [id number] christopher o marion [facility] 2020-10-09 2020-10-09 Outpatient R [facility] [id number] Univers 00:00:00 00:00:00 AbbiONEL [facility] 2020-10-09 2020-10-09 Letter Doctor NANNETTE 1.2.840.114 [id number] 00 00:00:00 00:00:00 (Out) Unassigned, MINO [id number] [place] [facility] [id number] [id number] [facility] 2020-10-09 2020-10-09 Letter Doctor NANNETTE [id number] Univers 00:00:00 00:00:00 (Out) Unassigned, MINO [id number] ity of [place] [facility] [id number] [place] [id number] [facility] 044 Branch 2020-10-06 2020-10-06 Beef Trimmer Mathieu Ocasio [facility] 1.2.840.114 [id number] 09:19:36 09:34:36 Visit Lab Main Yos[place] [id number] [place] [id number] [facility] [id number] [address] 2020-10-06 2020-10-06 Beef Trimmer Mathieu Ocasio Lab Main [facility] 1.2.8 40.114 [id number] [facility] 09:19:36 09:34:36 Visit Onel Cartwright 350.1.1 3.10 [place] [id number] Ayad long [place] [id number] [address] 2020-10-06 2020-10-06 Outpatient R HANS [facility] [id number] Univers 09:30:00 09:30:00 ONEL Morales f [facility] Results This patient has no known results.
[2021-12-24 08:26] LABS: Absolute Lymphocytes (CBC) 1.9 K/uL (0.7-4.9); Hematocrit 39.9 % (36.0-45.0); Lymphocytes % 25.6 % (15.3-44.8); MPV 8.9 fL (7.6-11.3); RBC Red Blood Cell Count 4.41 M/uL (3.86-4.86)
[2021-12-24 08:55] LABS: Albumin 3.4 g/dL (3.4-5.0); Bilirubin Total 0.3 mg/dL (0.2-1.0); Potassium 3.8 mmol/L (3.5-5.1); Protein, Total 7.6 g/dL (6.4-8.2)
[2021-12-24] MEDS ORDERED: ONDANSETRON 4 MG/2 ML VIAL IV PRN (09:25)
[2021-12-24] MEDS ORDERED: MORPHINE 2 MG/ML SYR IV PRN (09:25)
[2021-12-24] MEDS ORDERED: ACETAMINOPHEN 500 MG TAB PO PRN (09:25)
--- NOTE | 2021-12-24 09:27 | EDPHYS ---
Physician Documentation [facility] Name: Kateryna Medley Age: 66 yrs Sex: Female : 1955 Arrival Date: 12/24/2021 Time: 06:26 Bed 23 Private MD: ED Physician Mynor Alvarado HPI: 12/24 06:47 This 66 yrs old Female presents to ER via Unassigned with complaints of rn Black/Tarry Stools. 06:47 The patient presents to the emergency department with rectal bleeding, dark red blood rn with bowel movement with multiple such episodes. Onset: The symptoms/episode began/occurred last night. Abdominal pain: none is appreciated. Modifying factors: The symptoms are alleviated by nothing, the symptoms are aggravated by nothing. Severity of symptoms: At their worst the symptoms were mild in the emergency department the symptoms are unchanged. The patient has not experienced similar symptoms in the past. The patient has been recently seen by a physician:. Seen recently by Dr. Lawrence, had EGD and colonoscopy with polyp removal, had been doing fine until last night with dark stool that turned red once hit water. . Historical: - Allergies: 07:53 No Known Allergies; ll1 - PMHx: 07:53 GERD; Hypertension; herniated discs; Anxiety; Hypothyroidism; ll1 - PSHx: 07:53 polyp removed; ll1 - Immunization history:: Adult Immunizations up to date. - Family history:: not pertinent. - Social history:: Smoking status: Patient denies any tobacco usage or history of. - Hospitalizations: : No recent hospitalization is reported. ROS: 06:47 Constitutional: Negative for fever, chills, and weight loss, Eyes: Negative for injury, rn pain, redness, and discharge, Neck: Negative for injury, pain, and swelling, Cardiovascular: Negative for chest pain, palpitations, and edema, Respiratory: Negative for shortness of breath, cough, wheezing, and pleuritic chest pain, Abdomen/GI: Negative for abdominal pain, nausea, vomiting, diarrhea, and constipation, Back: Negative for injury and pain, : Negative for injury, bleeding, discharge, and swelling, MS/Extremity: Negative for injury and deformity, Skin: Negative for injury, rash, and discoloration, Neuro: Negative for headache, weakness, numbness, tingling, and seizure. Exam: 06:47 Constitutional: This is a well developed, well nourished patient who is awake, alert, rn and in no acute distress. Head/Face: Normocephalic, atraumatic. Eyes: Periorbital areas with no swelling, redness, or edema. Cardiovascular: Regular rate and rhythm. No pulse deficits. Respiratory: No increased work of breathing, no retractions or nasal flaring. Abdomen/GI: Soft, non-tender Skin: Warm, dry MS/ Extremity: Pulses equal, no cyanosis. Neuro: Awake and alert, GCS 15 08:26 ECG was reviewed by the Attending Physician. ms3 Vital Signs: 07:23 BP 155 / 78; Pulse 60; Resp 18; Temp 97.9; Pulse Ox 96% on R/A; Weight 104.33 kg; ph Height 5 ft. 1 in. (154.94 cm); 12:49 BP 159 / 77; Pulse 61; Resp 18; Pulse Ox 97% on R/A; Pain 0/10; ld1 07:23 Body Mass Index 43.46 (104.33 kg, 154.94 cm) ph MDM: 06:44 Patient medically screened. rn 07:00 Transition of care: Care assumed from Norman Durant MD. ms3 09:34 Differential diagnosis: gastritis, hemorrhoids, Post colonoscopy bleed. Data reviewed: ms3 vital signs, nurses notes, lab test result(s), EKG. Data interpreted: Pulse oximetry: on room air is 96 %. Test interpretation: by ED physician or midlevel provider: ECG. Counseling: I had a detailed discussion with the patient and/or guardian regarding: the historical points, exam findings, and any diagnostic results supporting the discharge/admit diagnosis, lab results, the need for further work-up and treatment in the hospital. ED course: Discussed case with Dr. Zapien and he will consult on patient. Agrees with observation. Discussed case with Dr. Mills and he will observe patient. Discussed plan with patient and her and they understand and agree with plan. patient remains stable in the ED.. 12/24 06:47 Order name: CBC with Diff; Complete Time: 09:06 rn 12/24 06:47 Order name: CMP; Complete Time: 09:06 rn 12/24 06:47 Order name: Lipase; Complete Time: 09:06 rn 12/24 06:47 Order name: Type And Screen rn 12/24 06:47 Order name: PT-INR rn 12/24 06:47 Order name: Ptt, Activated rn 12/24 09:30 Order name: COVID-19 SARS RT PCR (Document "Date of Onset" if Symptomatic) ms3 12/24 09:31 Order name: CBC with Automated Diff EDMS 12/24 09:31 Order name: CBC with Automated Diff EDMS 12/24 09:31 Order name: Comprehensive Metabolic Panel EDMS 12/24 09:31 Order name: Comprehensive Metabolic Panel EDMS 12/24 09:35 Order name: ABO/RH no charge EDMS 12/24 09:43 Order name: Abdomen EDMS 12/24 11:34 Order name: CBC with Automated Diff EDMS 12/24 06:47 Order name: IV Saline Lock; Complete Time: 07:28 rn 12/24 06:47 Order name: Labs collected and sent; Complete Time: 07:28 rn 12/24 06:52 Order name: Cardiac monitoring; Complete Time: 11:47 rn 12/24 06:52 Order name: EKG; Complete Time: 06:52 rn 12/24 06:52 Order name: EKG - Nurse/Tech; Complete Time: 07:28 rn 12/24 09:31 Order name: CONS Physician Consult EDMS 12/24 09:31 Order name: NPO EDMS EC:26 Rate is 60 beats/min. Rhythm is regular. QRS [place] is Normal. Clinical impression: ms3 Normal ECG. Interpreted by me. Reviewed by me. Administered Medications: No medications were administered Disposition Summary: 12/24/21 09:26 Hospitalization Ordered Hospitalization Status: Observation ms3 Provider: Solitario Mills ms3 Condition: Stable ms3 Problem: new ms3 Symptoms: are unchanged ms3 Bed/Room Type: Standard ms3 Location: Telemetry/MedSurg (observation)(12/24/21 13:15) bd Room Assignment: 212(12/24/21 13:15) bd Diagnosis - GI Bleed/ Gastrointestinal hemorrhage, unspecified ms3 - Essential (primary) hypertension ms3 Forms: - Medication Reconciliation Form ms3 - SBAR form ms3 Signatures: Dispatcher [employer] EDMS Yajaira Contreras Roman, MD MD rn Lewis, Lynsay, RN RN ll1 Mynor Alvarado DO DO ms3 Corrections: (The following items were deleted from the chart) 09: Telemetry/MedSurg (observation) ms3 bd : ms3 bd [facility] ER HOLD bd bd ERHOLD- bd bd
--- NOTE | 2021-12-24 09:27 | ER ---
Nurse's Notes [facility] Name: Kateryna Medley Age: 66 yrs Sex: Female : 1955 Arrival Date: 12/24/2021 Time: 06:26 Bed 23 Private MD: Diagnosis: GI Bleed/ Gastrointestinal hemorrhage, unspecified;Essential (primary) hypertension Presentation: 12/24 07:23 Chief complaint: Patient states: Dark tarry stools that started last night, also ph reports R sided abdominal, has MRI scheduled tomorrow, had polyp on 7th of this month during colonoscopy, also reports having upper GI study that showed "stomach inflammation". Denies chest pain, SOB or dizziness. Coronavirus screen: Vaccine status: Patient reports receiving the 1st dose of the Covid vaccine. Ebola Screen: No symptoms or risks identified at this time. Initial Sepsis Screen: Does the patient meet any 2 criteria? No. Patient's initial sepsis screen is negative. Does the patient have a suspected source of infection? No. Patient's initial sepsis screen is negative. Risk Assessment: Do you want to hurt yourself or someone else? Patient reports no desire to harm self or others. 07:23 Method Of Arrival: Ambulatory ph 07:23 Acuity: ERNESTINA 3 ph 14:11 Onset of symptoms was December 24, 2021. ld1 Triage Assessment: 08:26 General: Appears in no apparent distress. comfortable, well groomed, Behavior is calm, ph cooperative, appropriate for age, Denies fever. Pain: Complains of pain in anterior aspect of right lateral abdomen. Neuro: Level of Consciousness is awake, alert, obeys commands, Oriented to person, place, time, situation. GI: Reports bloody stool. Derm: Skin is intact, is healthy with good turgor, Skin is pink, warm \\T\\ dry. Musculoskeletal: Circulation, motion, and sensation intact. Range of motion:. Historical: - Allergies: 07:53 No Known Allergies; ll1 - PMHx: 07:53 GERD; Hypertension; herniated discs; Anxiety; Hypothyroidism; ll1 - PSHx: 07:53 polyp removed; ll1 - Immunization history:: Adult Immunizations up to date. - Family history:: not pertinent. - Social history:: Smoking status: Patient denies any tobacco usage or history of. - Hospitalizations: : No recent hospitalization is reported. Screenin:53 Abuse screen: Denies threats or abuse. Nutritional screening: No deficits noted. ll1 Tuberculosis screening: No symptoms or risk factors identified. Fall Risk IV access (20 points). Total Dean Fall Scale indicates No Risk (0-24 pts). Assessment: 07:52 General: Appears uncomfortable, Behavior is calm, cooperative, appropriate for age. ll1 Pain: Complains of pain in abdomen Quality of pain is described as aching. Neuro: No deficits noted. Cardiovascular: No deficits noted. GI: Reports upper abdominal pain, bloody stool. Vital Signs: 07:23 BP 155 / 78; Pulse 60; Resp 18; Temp 97.9; Pulse Ox 96% on R/A; Weight 104.33 kg; ph Height 5 ft. 1 in. (154.94 cm); 12:49 BP 159 / 77; Pulse 61; Resp 18; Pulse Ox 97% on R/A; Pain 0/10; ld1 07:23 Body Mass Index 43.46 (104.33 kg, 154.94 cm) ph ED Course: 06:26 Patient arrived in ED. bp1 06:44 Norman Durant MD is Attending Physician. rn 07:27 Attending Physician role handed off by Norman Durant MD ms3 07:27 Mynor Alvarado DO is Attending Physician. ms3 07:30 Triage completed. ph 07:52 Tonny Sage, RN is Primary Nurse. ll1 07:52 Arm band placed on Patient placed in an exam room, on a stretcher. ll1 07:53 Patient has correct armband on for positive identification. Bed in low position. Call ll1 light in reach. Side rails up X 1. Pulse ox on. NIBP on. 08:16 Inserted saline lock: 20 gauge in left antecubital area, using aseptic technique. Blood mb7 collected. 08:21 Type And Screen Sent. mb7 08:21 PT-INR Sent. mb7 08:21 Ptt, Activated Sent. mb7 08:31 EKG done, by ED staff, reviewed by Mynor Alvarado DO. mb7 09:26 Solitario Mills MD is Hospitalizing Provider. ms3 10:03 COVID-19 SARS RT PCR (Document "Date of Onset" if Symptomatic) Sent. mb7 14:11 No provider procedures requiring assistance completed. Patient admitted, IV remains in ld1 place. Administered Medications: No medications were administered Outcome: 09:26 Decision to Hospitalize by Provider. ms3 14:11 Admitted to Med/surg accompanied by tech, via wheelchair, room 231, Report called to ramakrishna Hawthorne RN 14:11 Condition: stable 14:11 Patient left the ED. ld1 Signatures: Norman Durant MD MD rn Hall, Patricia, RN RN ph Lewis, Lynsay, RN RN Mynor Marquez DO DO ms3 Saniya Driver [facility] Narda Linares RN RN ld1 Elva Nix mb7
[2021-12-24] MEDS: PANTOPRAZOLE INJ 80 MG in NA CHLORIDE 0.9% 250 ML IV SCH ×2 (10:00→20:54)
--- NOTE | 2021-12-24 10:02 | P.HP ---
Certification for Inpatient Patient admitted to: Observation With expected LOS: <2 Midnights Patient will require the following post-hospital care: None Practitioner: I am a practitioner with admitting privileges, knowledge of patient current condition, hospital course, and medical plan of care. Services: Services provided to patient in accordance with Admission requirements found in Title 42 Section 412.3 of the Code of Federal Regulations Patient History Date of Service: 12/24/21 Reason for admission: GIB Allergies No Known Allergies Allergy (Verified 12/01/20 11:39) Home Medications: Atenolol [Tenormin] 25 mg PO BID 12/01/20 Biotin 10,000 mcg PO DAILY 12/01/20 Cholecalciferol (Vitamin D3) [Vitamin D3] 50 mcg PO DAILY 12/01/20 Cranberry Conc/C/Bacill Coag [Cranberry Tablet] 1 tab PO DAILY 12/01/20 Cyanocobalamin [Vitamin B-12] 1,000 mcg PO DAILY 12/01/20 Magnesium Oxide [Magnesium] 400 mg PO DAILY 12/01/20 Montelukast [Singulair] 10 mg PO BEDTIME 12/01/20 Pantoprazole [Protonix Tab] 40 mg PO DAILY 12/01/20 Thyroid,Pork [[place] Thyroid] 210 mg PO DAILY 12/01/20 Turmeric Root Extract [Turmeric Curcumin] 1,000 mg PO DAILY 12/01/20 Zinc 25 mg PO DAILY 12/01/20 clonazePAM [Klonopin] 0.5 mg PO BEDTIME 12/01/20 hydroCHLOROthiazide [Hydrochlorothiazide*] 12.5 mg PO DAILY 12/01/20 - Past Medical/Surgical History Diabetic: No -: hypothyroidism -: gerd -: HTN -: sinus problems -: herniated disk in back -: cateract left eye - Family History Mother Medical History: Stroke Father Medical History: Cancer Notes: kidney cancer - Social History Alcohol use: Yes CD- Drugs: No Caffeine use: Yes Physical Examination - Studies Laboratory Data (last 24 hrs) 12/24/21 08:15: Sodium 140, Potassium 3.8, BUN 15, Creatinine 0.76, Glucose 99, Total Bilirubin 0.3, AST 15, ALT 24, Alkaline Phosphatase 116, Lipase 91 12/24/21 08:15: WBC 7.5, Hgb 13.5, Hct 39.9, Plt Count 346 Assessment & Plan - Advance Directives Does patient have a Living Will: No Does patient have a Durable POA for Healthcare: No
[2021-12-24 11:33] LABS: Absolute Lymphocytes (CBC) 1.6 K/uL (0.7-4.9); Hematocrit 38.6 % (36.0-45.0); Lymphocytes % 20.8 % (15.3-44.8); MPV 8.8 fL (7.6-11.3); RBC Red Blood Cell Count 4.32 M/uL (3.86-4.86)
--- NOTE | 2021-12-24 11:55 | RAD REPORT ---
EXAM DESCRIPTION: CT - Abdomen Pelvis W Contrast - 12/24/2021 10:32 am CLINICAL HISTORY: Abdominal pain COMPARISON: none. TECHNIQUE: Computed axial tomography of the abdomen pelvis was obtained. 100 cc Isovue-300 was admin istered intravenously. Oral contrast was not requested which limits evaluation of bowel. All CT scans are performed using dose optimization technique as appropriate and may include automated exposure control or mA/KV adjustment according to patient size. FINDINGS: Mild fatty liver. Cholecystectomy Mild stranding within the central mesentery Spleen, pancreas, adrenal and kidneys appear unremarkable. There is no evidence of diverticulitis. No evidence of colitis. Normal appendix Small umbilical hernia IMPRESSION: Mild stranding within the central mesentery may indicate a mesenteritis
[2021-12-24 14:43] VITALS: BMI 43.4
[2021-12-24] MEDS: NA CHLORIDE 0.9% 1,000 ML IV SCH (15:52)
[2021-12-24] MEDS: Levofloxacin500mg IV 500 MG/100 ML BAG IV SCH (17:45)
[2021-12-24] MEDS ORDERED: HYDRALAZINE HCL 25 MG TABLET PO PRN (21:08)
[2021-12-24] MEDS: atenoloL 25 MG TAB PO SCH (21:27)
[2021-12-25] MEDS ORDERED: HYDRALAZINE HCL 20 MG/ML VIAL IV ONE (00:18)
[2021-12-25 04:23] LABS: Absolute Lymphocytes (CBC) 1.6 K/uL (0.7-4.9); Hematocrit 35.6 % (36.0-45.0); Lymphocytes % 24.4 % (15.3-44.8); MPV 8.5 fL (7.6-11.3); RBC Red Blood Cell Count 3.95 M/uL (3.86-4.86)
[2021-12-25 04:38] LABS: ALT/SGPT 19 U/L (12-78); AST/SGOT 12 U/L (15-37); Albumin 2.8 g/dL (3.4-5.0); Alkaline Phosphatase 88 U/L (45-117); BUN Blood Urea Nitrogen 11 mg/dL (7-18); Bicarbonate 29 mmol/L (21-32); Bilirubin Total 0.4 mg/dL (0.2-1.0); Glucose Level 94 mg/dL (74-106); Potassium 4.2 mmol/L (3.5-5.1); Protein, Total 6.1 g/dL (6.4-8.2); Sodium Level 143 mmol/L (136-145)
[2021-12-25] MEDS: NA CHLORIDE 0.9% 1,000 ML IV SCH ×2 (06:08→12:40)
[2021-12-25] MEDS: PANTOPRAZOLE INJ 80 MG in NA CHLORIDE 0.9% 250 ML IV SCH (06:39)
[2021-12-25] MEDS: THYROID 30 MG TAB PO SCH ×2 (08:59→09:42)
[2021-12-25] MEDS: SUCRALFATE 1 GM TABLET PO SCH ×3 (08:59→16:09)
[2021-12-25] MEDS: atenoloL 25 MG TAB PO SCH ×2 (09:00→10:27)
[2021-12-25] MEDS ORDERED: hydroCHLOROthiazide 12.5 MG CAP PO SCH (09:00)
[2021-12-25] MEDS: MAGNESIUM OXIDE 400 MG TAB PO SCH ×2 (09:00→10:27)
[2021-12-25] MEDS ORDERED: VALSARTAN 80 MG TAB PO SCH (09:00)
[2021-12-25] MEDS: ZINC SULFATE 220 MG CAP PO SCH ×2 (09:00→10:27)
[2021-12-25] MEDS ORDERED: PANTOPRAZOLE 40MG TABLET PO SCH (09:00)
--- NOTE | 2021-12-25 09:01 | EKG ---
Test Date: 2021-12-24 Test Time: 08:26:27 [place] Frame Builder: MB MEASUREMENT RESULTS: Intervals: Rate: 60 NC: 140 QRSD: 74 QT: 410 QTc: 410 [place]: P: 30 NC: 140 QRS: 7 T: 3 INTERPRETIVE STATEMENTS: Normal sinus rhythm Low voltage QRS Borderline ECG No previous ECG available for comparison Electronically Signed On 12-25-21 08:58:25 CDT by Nomi Lew
[2021-12-25 09:58] VITALS: O2SAT 97
[2021-12-25] MEDS ORDERED: PANTOPRAZOLE INJ 80 MG in NA CHLORIDE 0.9% 250 ML IV SCH (16:00)
[2021-12-25] MEDS: Levofloxacin500mg IV 500 MG/100 ML BAG IV SCH (16:10)
[2021-12-25 16:33] VITALS: BP 142/67; TEMP 97.2
--- NOTE | 2021-12-25 16:46 | RAD REPORT ---
EXAM DESCRIPTION: MRI - Mri Abdomen W/Wo Cont - 12/25/2021 3:33 pm CLINICAL HISTORY: evaluate bile duct, liver other viscera COMPARISON: Cholangiogram dated 12/25/2021; Abdomen Pelvis W Contrast dated 12/24/2021 TECHNIQUE: Multiplanar imaging of the abdomen performed using T1 weighted, T2 weighted, T2 haste fat saturation, T1 inphase/opposed phase imaging and post contrast T1 fat saturation sequencing. Delayed 20 minutes sequencing was performed. A 20 milliliter MultiHance contrast volume was utilized. FINDINGS: Liver size is normal with no focal liver parenchymal lesion identifiable. No capsule nodul arity. Signal drop is seen on opposed phase imaging. Fatty infiltration pattern was seen on the CT st udy as well. Portal vein enhances normally. Gallbladder is absent. No abnormal biliary tree dilatation identifiable on this study. No pancreatic or peripancreatic abnormality. Spleen is unremarkable. Kidneys and adrenal glands show no suspicious findings. Imaged bowel loops are unremarkable. No ascit es, lymphadenopathy or suspicious findings in the abdomen. No vascular abnormality seen. IMPRESSION: Fatty infiltration of an otherwise unremarkable liver. Gallbladder is absent. No abnormal biliary tree dilatation.
--- NOTE | 2021-12-25 16:48 | RAD REPORT ---
EXAM DESCRIPTION: MRI - Cholangiogram - 12/25/2021 3:33 pm CLINICAL HISTORY: Abdominal pain COMPARISON: MRI abdomen same date, CT abdomen December 20 TECHNIQUE: Axial and coronal heavily T2 weighted sequences were obtained. Coronal T2 HASTE fat satur ation static and coronal multiplane reconstruction imaging generated and reviewed. Horizontal and larry tical axis rotational views obtained using maximum intensity projection (MIP) protocol. FINDINGS: Axial and coronal source images show fatty infiltration of the liver with no focal liver f inding. Solid abdominal viscera and bowel or detailed on the separate MRI abdomen report. Gallbladder is absent. No pancreatic duct dilatation. There is no intrahepatic or extrahepatic biliar y tree dilatation. Remnant cystic duct unremarkable as well. There is no stricture, mass or intralumi nal filling defect within the nondilated biliary tree. IMPRESSION: Normal post cholecystectomy MRCP examination.
[2021-12-25] MEDS ORDERED: MONTELUKAST 10 MG TAB PO SCH (21:00)
== END 2021-12-25 21:00 | disposition home or self-care (01) ==
LOC: ER 06:23 → ERHOLD 09:26 → 2ND 13:55
PROVIDERS: ADMIT Hospitalist; ATTEND Hospitalist
DX: K92.2 Gastrointestinal hemorrhage, unspecified (principal); K21.9 Gastro-esophageal reflux disease without esophagitis; I10 Essential (primary) hypertension; E03.9 Hypothyroidism, unspecified; F41.9 Anxiety disorder, unspecified; Z20.822 Contact with and (suspected) exposure to COVID-19; Z82.3 Family history of stroke; Z80.51 Family history of malignant neoplasm of kidney
CPT/HCPCS: 93005; 85025 ×3; 36415; 86900; 86850; 85610; 86901; 85730; 83690; 80053 ×2; 74177; 74181; 74183; 99285; U0003; Q9967; A9577; C9113 ×3; J7050 ×3; J7030 ×2; G0378 ×3; J0360

== ENCOUNTER → 2023-09-25 | Emergency (ER) | payer OTHER ==
[~2023-09-25] MED LIST: NA CHLORIDE 0.9% 500 ML ONE; ONDANSETRON 4 MG/2 ML VIAL ONE
--- OUTSIDE RECORDS SUMMARY | 2023-09-25 22:28 | XMS REPORT | Continuity of Care Document ---
Author Name Unknown Address [address] [facility] [address] [place] [address] [facility] thconnect Address [address] [facility] [place] [address] Care Team Providers Care Sap Technical Developer Name Role Phone Pierce Jin MD Primary Care Physician +- [phone] [email or web address] Attending Clinician Jewell Cabrera RN, Yeny Phillip Attending Clinician Unavailab le Provider, [facility] Attending Clinician Unavailable Only, Ang Db Test Attending Clinician Saniya Magaña Attending Clinician [phone] SANIYA DONALDSON Attending Clinician Unavailabl e Doctor Unassigned, [place] Attending Clinician U Onel Cronin MD Attending Clinician +- [phone] ONEL CARTWRIGHT Attending Clinician Mathieu [facility] Main Attending Clinician Unavailzain e [email or web address] Admitting Clinician Jewell wick Payers Payer Name Policy Type Policy Number Effective Date Expirati on Date Source [facility] [id number] [employer] PPO I [id number] 2009 00:00:00 [facility] [id number] 2018 00:00:00 Allergies, Adverse Reactions, Alerts Allergy Name Allergy Type Status Severity Reaction(s) Onset Date Inactive Date Treating Clinician Comments Source No Known Allergie s DA Active U 2017-09 00:00: 00 TABITHA [facility] NO KNOWN ALLERGIE S Drug Class Active [facility] Social History Social Habit Start Date Stop Date Quantity Comments Source Exposure to SARS-CoV-2 (event) Yes [facility] Sex Assigned At 1955 00:00:00 1955 00:00:00 [facility] Smoking Status Start Date Stop Date Source Unknown if [facility] Procedures Procedure Date / Time Performed Performing Clinicia n Source NOTICE OF BILLING PRACTICES FOR MEDICARE PATIENTS 2021-09-18 18:34:46 Doctor Unassigned, [place] [facility] US ABDOMEN COMPLETE 2020-10-10 01:04:09 Onel Cartwright [facility] Encounters Start Date/Time End Date/Time Encounter Type Admission Type Attending Clinicians Care Facility Care Department Encounter ID Source 2023-09-05 00:00:00 2023-09-05 00:00:00 Outpatient GC_[email or web address] diyala_S PRIV PRIV [id number] [facility] 2023-09-04 00:00:00 2023-09-04 00:00:00 Outpatient GC_[email or web address] diyala_S PRIV PRIV [id number] [facility] 2023-09-02 00:00:00 2023-09-02 00:00:00 Outpatient GC_GCBZW_Ka diyala_S PRIV PRIV [id number] [facility] 2023-07-05 00:00:00 2023-07-05 00:00:00 Outpatient GC_GCBZW_Ka diyala_S PRIV PRIV [id number] [facility] 2021-09-20 00:00:00 2021-09-20 00:00:00 Letter (Out) Yeny Cabrera [facility] [id number] [id number] [facility] 2021-09-20 00:00:00 2021-09-20 00:00:00 Telephone Provider, Colin [facility] 1.84.114 350.1.13.10 [id number] [id number] [facility] 2021-09-18 12:45:00 2021-09-18 13:00:00 Laboratory Only Only, Ang Db Test Eugenia Donaldsontany [facility] 1.84.114 350.1.13.10 [id number] [id number] [facility] 2021-09-18 12:45:00 2021-09-18 12:45:00 Outpatient R SANIYA DONALDSON [facility] [id number] [facility] 2021-09-18 00:00:00 2021-09-18 00:00:00 Orders Only Doctor Unassigned, [place] [facility] 1.84.114 350.1.13.10 4.2.7.2.686 [id number] [facility] 2020-11-12 09:15:00 2020-11-12 09:15:[address] [facility] [id number] [facility] 2020-10-15 09:30:00 2020-10-15 09:30:[address] [facility] [id number] [facility] 2020-10-09 18:30:00 2020-10-09 23:59:00 Hospital Encounter Onel Guzman [facility] 1.84.114 350.1.13.10 4.2.7.2.686 [id number] 2020-10-09 18:30:00 2020-10-09 23:59:00 Hospital Encounter Onel Guzman [facility] [id number] [id number] [id number] [id number] [facility] 2020-10-09 00:00:00 2020-10-09 00:00:00 Outpatient R ONEL GUZMAN [facility] [id number] [facility] 2020-10-09 00:00:00 2020-10-09 00:00:00 Letter (Out) Doctor Unassigned, [place] [facility] [id number] 350.1.13.10 4.2.7.2.686 [id number] 2020-10-09 00:00:00 2020-10-09 00:00:00 Letter (Out) Doctor Unassigned, [place] [facility] [id number] 350.1.13.10 4.2.7.2.686 [id number] [facility] 2020-10-06 09:19:36 2020-10-06 09:34:36 Personnel Representative Visit Pob, Adc Lab Main [facility] [id number] 350.1.13.10 4.2.7.2.686 [id number] 2020-10-06 09:19:36 2020-10-06 09:34:36 Personnel Representative Visit Pob, Adc Lab Main [facility] [id number] [id number] 4.2.7.2.686 [id number] [facility] 2020-10-06 09:30:00 2020-10-06 09:30:00 Outpatient R ONEL GUZMAN [facility] [id number] [facility]
[2023-09-25 23:44] LABS: Absolute Lymphocytes (CBC) 1.9 K/uL (0.7-4.9); Hematocrit 41.9 % (36.0-45.0); Lymphocytes % 16.1 % (15.3-44.8); MCV 90.7 fL (80-100); MPV 8.3 fL (7.6-11.3); Platelets 428 thou/uL (152-406); RBC Red Blood Cell Count 4.62 M/uL (3.86-4.86)
[2023-09-25 23:45] LABS: Protime INR 1.11
[2023-09-25 23:58] LABS: Albumin 3.2 g/dL (3.4-5.0); Bilirubin Direct 0.1 mg/dL (0-0.2); Bilirubin Indirect, Calculated 0.2 mg/dL (0.2-0.8); Bilirubin Total 0.3 mg/dL (0.2-1.0); Potassium 3.9 mEq/L (3.5-5.1); Protein, Total 7.5 g/dL (6.4-8.2); Troponin High Sensitivity 5.2 pg/mL (<58.9)
[2023-09-26 00:10] LABS: SARS-CoV-2 Antigen Rapid Res Negative (Negative)
--- NOTE | 2023-09-26 00:14 | EDPHYS ---
Physician Documentation [facility] Name: Kateryna Medley Age: 68 yrs Sex: Female : 1955 Arrival Date: 09/25/2023 Time: 22:24 Bed 19 Private MD: ED Physician Venkatesh George HPI: 09/25 23:44 This 68 yrs old Female presents to ER via Ambulatory with complaints of Flu sp3 Symptoms, Fever, Chest Congestion, Sore Throat. 23:44 68-year-old female with a history of hypertension, hypothyroidism, GERD, anxiety who sp3 presents with chief complaint vomiting and 1 blood pressure reading of 80 diastolic at home for which family was concerned about and brought her into the ED. Incidentally she has also had URI symptoms consisting of subjective fever, cough, congestion which she states overall has been getting better over the last 3 to 4 days. No other symptoms reported including chest pain, significant shortness of breath, syncope, near syncope, focal neurological deficit, or any other signs or symptoms on ROS at this time. She saw her PCP follow-up just who prescribed her Zithromax, prednisone and cough syrup.. Historical: - Allergies: 22:50 Reclast; pf1 - PMHx: 22:50 Anxiety; GERD; herniated discs; Hypertension; Hypothyroidism; pf1 - PSHx: 22:50 polyp removed; Cholecystectomy; pf1 22:52 cataracts; pf1 - Immunization history:: Adult Immunizations up to date, 5 doses: a combination of Moderna and Pfizer. - Social history:: Smoking status: Patient denies any tobacco usage or history of. Patient/guardian denies using alcohol, street drugs. ROS: 23:46 Constitutional: Negative for fever, chills, and weight loss, Eyes: Negative for injury, sp3 pain, redness, and discharge, Neck: Negative for injury, pain, and swelling, Cardiovascular: Negative for chest pain, palpitations, and edema, Back: Negative for injury and pain, MS/Extremity: Negative for injury and deformity, Skin: Negative for injury, rash, and discoloration, Neuro: Negative for headache, weakness, numbness, tingling, and seizure, 23:46 All other systems are negative, Exam: 23:46 Constitutional: This is a well developed, well nourished patient who is awake, alert, sp3 and in no acute distress. Head/Face: Normocephalic, atraumatic. Eyes: Pupils equal round and reactive to light, extra-ocular motions intact. Lids and lashes normal. Conjunctiva and sclera are non-icteric and not injected. Cornea within normal limits. Periorbital areas with no swelling, redness, or edema. ENT: Nares patent. No nasal discharge, no septal abnormalities noted. External auditory canals are clear. Oropharynx with no redness, swelling, or masses, exudates, or evidence of obstruction, uvula midline. Mucous membranes moist. Neck: Trachea midline, no thyromegaly or masses palpated, and no cervical lymphadenopathy. Supple, full range of motion without nuchal rigidity, or vertebral point tenderness. No Meningismus. Chest/axilla: Normal chest wall appearance and motion. Nontender with no deformity. No lesions are appreciated. Cardiovascular: Regular rate and rhythm with a normal S1 and S2. No gallops, murmurs, or rubs. Normal PMI, no JVD. No pulse deficits. Abdomen/GI: Soft, non-tender, with normal bowel sounds. No distension or tympany. No guarding or rebound. No evidence of tenderness throughout. Back: No spinal tenderness. No costovertebral tenderness. Full range of motion. Skin: Warm, dry with normal turgor. Normal color with no rashes, no lesions, and no evidence of cellulitis. 23:46 Respiratory: Mild cough noted. Patient in no acute respiratory distress and resting comfortably with normal pulse oxygenation on room air., 09/26 00:04 ECG was reviewed by the Attending Physician. EKG demonstrates sinus bradycardia at 60 sp3 bpm with normal intervals, slightly leftward axis, normal QRS, normal ST/T-segment's without evidence of acute ischemia. Vital Signs: 09/25 22:44 BP 142 / 64; Pulse 70; Resp 16; Temp 97.9; Pulse Ox 96% on R/A; Weight 103.42 kg; pf1 Height 5 ft. 0 in. ; Pain 2/10; 09/26 00:04 BP 149 / 80; Pulse 57; Resp 14 S; Pulse Ox 98% on R/A; jw7 00:36 BP 140 / 71; Pulse 60; Resp 15 S; Pulse Ox 100% on R/A; jw7 09/25 22:44 Body Mass Index 44.53 (103.42 kg, 152.4 cm) pf1 09/25 22:44 Pain Scale: Adult pf1 MDM: 09/25 23:11 Patient medically screened. sp3 23:47 Data reviewed: vital signs, nurses notes, old medical records, lab test result(s), EKG, sp3 radiologic studies. ED course: 68-year-old female with PMH above now with chief complaint vomiting and questionable high blood pressure. Patient is longer vomiting and blood pressure is normal. URI symptoms overall are improving. Patient is nontoxic and in no acute distress. Differential diagnosis includes URI/viral syndrome, and to a much much lower degree pneumonia, acute coronary syndrome, or other process. I met highly suspicious for any of these other processes. Workup will include chest x-ray, swabs, laboratory values we will administer ondansetron and normal saline for supportive care. If workup is negative, we will safely discharge patient home. Patient is already finished her Zithromax and prednisone as prescribed from her PCP. I do not believe she has a bacterial process going on.. 09/26 00:12 ED course: Workup is negative and all swabs are negative. We will safely discharge her sp3 home on oral ondansetron and follow-up with PCP. Diagnosis viral syndrome.. 09/25 23:11 Order name: Basic Metabolic Panel; Complete Time: 00:11 3 09/25 23:11 Order name: CBC with Diff; Complete Time: 00:11 3 09/25 23:11 Order name: LFT's; Complete Time: 00:11 3 09/25 23:11 Order name: NT PRO-BNP; Complete Time: 00:11 3 09/25 23:11 Order name: PT-INR; Complete Time: 00:11 3 09/25 23:11 Order name: Troponin HS; Complete Time: 00:11 3 09/25 23:11 Order name: SARS RAPID; Complete Time: 00:11 3 09/25 23:11 Order name: Flu; Complete Time: 00:11 sp3 09/25 23:11 Order name: Strep sp3 09/26 00:10 Order name: Throat Culture EDMS 09/25 23:11 Order name: XRAY Chest (1 view) 3 09/25 23:11 Order name: EKG; Complete Time: 23:11 sp3 09/25 23:11 Order name: Cardiac monitoring; Complete Time: 23:43 sp3 09/25 23:11 Order name: EKG - Nurse/Tech; Complete Time: 00:00 sp3 09/25 23:11 Order name: IV Saline Lock; Complete Time: 23:43 sp3 09/25 23:11 Order name: Labs collected and sent; Complete Time: 23:43 sp3 09/25 23:11 Order name: O2 Per Protocol; Complete Time: 23:43 sp3 09/25 23:11 Order name: O2 Sat Monitoring; Complete Time: 23:44 sp3 Administered Medications: 00:00 Drug: Ondansetron IVP 4 mg IVP once; over 2 minutes Route: IVP; Site: right antecubital;jw7 00:37 Follow up: Response: No adverse reaction; Marked relief of symptoms 7 00:00 Drug: NS 0.9% IV 500 ml IV at bolus once Route: IV; Rate: bolus; Site: right jw7 antecubital; 00:37 Follow up: Response: No adverse reaction; IV Status: Completed infusion; IV Intake: jw7 500ml Disposition Summary: 09/26/23 00:13 Discharge Ordered Notes: Location: Home sp3 Condition: Stable sp3 Diagnosis - Viral syndrome, upper respiratory infection, vomiting now resolved sp3 Followup: sp3 - With: Private Physician - When: Upon discharge from the Emergency Department - Reason: Continuance of care Discharge Instructions: - Discharge Summary Sheet sp3 - Viral Illness, Adult sp3 Forms: - Medication Reconciliation Form sp3 - Thank You Letter sp3 - Antibiotic Education sp3 - Prescription Opioid Use sp3 - Patient Portal Instructions sp3 - Leadership Thank You Letter sp3 Prescriptions: - Zofran 4 mg Oral Tablet - take 1 tablet ORAL route every 12 hours As needed; 20 tablet; Refills: 0, sp3 Product Selection Permitted Signatures: Dispatcher [employer] EDVenkatesh Joya MD MD sp3 Tracee Jeff RN RN jw7 Ansley Phan RN RN pf1 Corrections: (The following items were deleted from the chart) 09/25 23:48 23:44 68-year-old female with a history of hypertension, hypothyroidism, GERD, anxiety sp3 who presents with chief complaint vomiting and 1 blood pressure reading of 80 diastolic at home for which family was concerned about and brought her into the ED. Incidentally she has also had URI symptoms consisting of subjective fever, cough, congestion which she states overall has been getting better over the last 3 to 4 days. No other symptoms reported including chest pain, significant shortness of breath, syncope, near syncope, focal neurological deficit, or any other signs or symptoms on ROS at this time.. sp3
--- NOTE | 2023-09-26 00:14 | ER ---
Nurse's Notes [facility] Name: Kateryna Medley Age: 68 yrs Sex: Female : 1955 Arrival Date: 09/25/2023 Time: 22:24 Bed 19 Private MD: Diagnosis: Viral syndrome, upper respiratory infection, vomiting now resolved Presentation: 09/25 22:44 Chief complaint: Patient states: fever, chills, cough, congestion with sore throat pain pf1 of 2, onset 09/17/23 with nausea,onset today. Patient stated completed azithromycin and prednisone. Patient stated the cough has resolved. Coronavirus screen: Vaccine status: Client denies travel out of the [place] in the last 14 days. Client presents with at least one sign or symptom that may indicate coronavirus-19. Ebola Screen: Patient negative for fever greater than or equal to 101.5 degrees Fahrenheit, and additional compatible Ebola Virus Disease symptoms. Initial Sepsis Screen: Does the patient meet any 2 criteria? No. Patient's initial sepsis screen is negative. Does the patient have a suspected source of infection? No. Patient's initial sepsis screen is negative. Risk Assessment: Do you want to hurt yourself or someone else? Patient reports no desire to harm self or others. 22:44 Method Of Arrival: Ambulatory pf1 22:44 Acuity: ERNESTINA 4 pf1 09/26 00:04 Onset of symptoms was September 17, 2023. jw7 Historical: - Allergies: 09/25 22:50 Reclast; pf1 - PMHx: 22:50 Anxiety; GERD; herniated discs; Hypertension; Hypothyroidism; pf1 - PSHx: 22:50 polyp removed; Cholecystectomy; pf1 22:52 cataracts; pf1 - Immunization history:: Adult Immunizations up to date, 5 doses: a combination of Moderna and Pfizer. - Social history:: Smoking status: Patient denies any tobacco usage or history of. Patient/guardian denies using alcohol, street drugs. Screenin/19 00:03 [facility] ED Fall Risk Assessment (Adult) History of falling in the last 3 months, jw7 including since admission No falls in past 3 months (0 pts) Score/Fall Risk Level 0 - 2 = Low Risk Oriented to surroundings, Maintained a safe environment, Educated pt \T\ family on fall prevention, incl call for assistance when getting out of bed. Abuse screen: Denies threats or abuse. Denies injuries from another. Nutritional screening: No deficits noted. Tuberculosis screening: No symptoms or risk factors identified. Assessment: 00:02 General: Appears in no apparent distress. comfortable, Behavior is calm, cooperative. jw7 Pain: Denies pain. Neuro: Level of Consciousness is awake, alert, obeys commands, Oriented to person, place, time, situation. Cardiovascular: Capillary refill < 3 seconds Clubbing of nail beds is absent JVD is absent Patient's skin is warm and dry. Respiratory: Airway is patent Trachea midline Respiratory effort is even, unlabored, Respiratory pattern is regular, symmetrical. GI: No deficits noted. No signs and/or symptoms were reported involving the gastrointestinal system. : No deficits noted. No signs and/or symptoms were reported regarding the genitourinary system. EENT: Throat is reddened. Derm: Skin is intact, is healthy with good turgor, Skin is dry, Skin is normal, Skin temperature is warm. Musculoskeletal: Circulation, motion, and sensation intact. Range of motion: intact in all extremities. 00:36 Reassessment: Patient appears in no apparent distress at this time. Patient and/or jw7 family updated on plan of care and expected duration. Pain level reassessed. Patient is alert, oriented x 3, equal unlabored respirations, skin warm/dry/pink. Vital Signs: 09/25 22:44 BP 142 / 64; Pulse 70; Resp 16; Temp 97.9; Pulse Ox 96% on R/A; Weight 103.42 kg; pf1 Height 5 ft. 0 in. ; Pain 2/10; 09/26 00:04 BP 149 / 80; Pulse 57; Resp 14 S; Pulse Ox 98% on R/A; jw7 00:36 BP 140 / 71; Pulse 60; Resp 15 S; Pulse Ox 100% on R/A; jw7 09/25 22:44 Body Mass Index 44.53 (103.42 kg, 152.4 cm) pf1 09/25 22:44 Pain Scale: Adult pf1 ED Course: 09/25 22:29 Patient arrived in ED. kj1 22:33 Venkatesh George MD is Attending Physician. sp3 22:50 Triage completed. pf1 23:21 Waits, Tracee, RN is Primary Nurse. jw7 23:29 Inserted saline lock: 22 gauge in right antecubital area, using aseptic technique. [facility] Blood collected. 23:35 XRAY Chest (1 view) In Process Unspecified. EDRI 09/26 00:03 Patient has correct armband on for positive identification. Bed in low position. Call jw7 light in reach. 00:04 No provider procedures requiring assistance completed. jw7 00:04 Arm band placed on. jw7 00:37 IV discontinued, intact, bleeding controlled, No redness/swelling at site. Pressure jw7 dressing applied. 00:37 Provided Education on: discharge instructions and medication usage . jw7 Administered Medications: 00:00 Drug: Ondansetron IVP 4 mg IVP once; over 2 minutes Route: IVP; Site: right antecubital;jw7 00:37 Follow up: Response: No adverse reaction; Marked relief of symptoms jw7 00:00 Drug: NS 0.9% IV 500 ml IV at bolus once Route: IV; Rate: bolus; Site: right jw7 antecubital; 00:37 Follow up: Response: No adverse reaction; IV Status: Completed infusion; IV Intake: jw7 500ml Medication: 00:04 VIS not applicable for this client. jw7 Intake: 00:37 IV: 500ml; Total: 500ml. jw7 Outcome: 00:13 Discharge ordered by . sp3 00:36 Discharged to home ambulatory, jw7 00:36 Condition: stable 00:36 Discharge instructions given to patient, Instructed on discharge instructions, follow up and referral plans. medication usage, Demonstrated understanding of instructions, follow-up care, medications, Prescriptions given X 1, 00:41 Patient left the ED. jw7 Signatures: Dispatcher [employer] [facility] Jody Zee kj1 Venkatesh George MD MD sp3 Tracee Jeff RN RN jw7 Ansley Phan RN RN [email or web address] Kay Arzate [facility]
[2023-09-26 05:07] VITALS: TEMP 97.9
[2023-09-26 05:08] VITALS: BP 140/71; O2SAT 100
--- NOTE | 2023-09-26 10:58 | RAD REPORT ---
EXAM DESCRIPTION: RAD - Chest Single View - 09/25/2023 11:33 pm CLINICAL HISTORY: The patient is 68 years old and is Female; COUGH Bed Name: IW3 TECHNIQUE: Frontal view of the chest. COMPARISON: No relevant prior studies available. FINDINGS: LUNGS: Prominence of the bilateral central interstitial favored to be artifactual second faustino to underpenetration. No discrete focal consolidation. PLEURAL SPACE: No appreciable pleural effusion or pneumothorax. MEDIASTINUM: Prominence of the cardiomediastinal silhouette, likely exaggerated secondary to portab le technique, lordotic positioning, and patient body habitus. BONES/JOINTS: No acute osseous abnormality. IMPRESSION: No acute findings in the chest. Electronically signed by: Brett Juarez MD 09/25/2023 11:42 PM CHEMISTRY TUTOR Due to temporary technical issues with the PACS/Fluency reporting system, reports are being signed by the in house radiologist without review as a courtesy to ensure prompt reporting. The interpreting r adiologist is fully responsible for the content of the report.
--- NOTE | 2023-09-29 17:05 | EKG ---
Test Date: 2023-09-25 Test Time: 23:55:46 Joint Terminal Attack Controller: JAXSON MEASUREMENT RESULTS: Intervals: Rate: 57 LA: 144 QRSD: 72 QT: 422 QTc: 410 [place]: P: 41 LA: 144 QRS: -2 T: 22 INTERPRETIVE STATEMENTS: Sinus bradycardia Otherwise normal ECG Compared to ECG 12/24/2021 08:26:27 Sinus rhythm no longer present Electronically Signed On 09-29-23 16:54:59 WATER [employer] INSTRUCTOR by Balwinder Patel
== END ==
LOC: ER 22:24
DX: J06.9 Acute upper respiratory infection, unspecified (principal); B34.9 Viral infection, unspecified; I10 Essential (primary) hypertension; E03.9 Hypothyroidism, unspecified; K21.9 Gastro-esophageal reflux disease without esophagitis; F41.9 Anxiety disorder, unspecified; R11.10 Vomiting, unspecified; Z11.52 Encounter for screening for COVID-19; Z88.8 Allergy status to other drugs, medicaments and biological substances
CPT/HCPCS: 96361; 93005; 87070; 85025; 80048; 36415; 85610; 80076; 87081; 84484; 83880; 87804 ×2; 71045; 96374; 99284; 87811; J2405; J7040

== ENCOUNTER 2023-12-15 05:50 | Day surgery (SDC) | payer OTHER ==
[2023-12-15] MEDS ORDERED: NA CHLORIDE 0.9% 50 ML ONE (06:05)
[2023-12-15] MEDS: Ringers Lactate 1,000 ML IV ONE (06:15)
[2023-12-15] MEDS: CEFAZOLIN SODIUM 1 GM/VIAL ONE (06:20)
[2023-12-15] MEDS ORDERED: FENTANYL CITR 100 MCG/2 ML ONE (06:55)
[2023-12-15] MEDS ORDERED: propofoL 200 MG/20 ML VIAL IV ONE (06:55)
[2023-12-15] MEDS ORDERED: ONDANSETRON 4 MG/2 ML VIAL ONE (06:55)
[2023-12-15] MEDS ORDERED: dexAMETHasone 10 MG/ML VIAL ONE (06:55)
[2023-12-15] MEDS ORDERED: MIDAZOLAM HCL 2 MG/2 ML INJ ONE (06:55)
[2023-12-15] MEDS ORDERED: LIDOCAINE 1% MPF 5 ML VIAL ONE (06:55)
[2023-12-15] MEDS ORDERED: KETOROLAC 30 MG/ML INJ ONE (06:55)
[2023-12-15] MEDS ORDERED: dexAMETHasone 4 MG/ML VIAL ONE (07:08)
[2023-12-15] MEDS: BUPIVACAINE 0.5% PF 10 ML VIAL ONE (07:36)
[2023-12-15] MEDS ORDERED: CEFAZOLIN SODIUM 1 GM/VIAL ONE (08:13)
[2023-12-15] MEDS: LIDOCAINE 2% MPF 5 ML VIAL ONE (08:15)
[2023-12-15 10:06] VITALS: BP 130/64; TEMP 96.9; O2SAT 98
== END 2023-12-15 09:32 | disposition home or self-care (01) ==
LOC: OR 05:50
PROVIDERS: ATTEND Podiatrist Foot & Ankle Surgery
PROC: 0HBNXZZ Excision of Left Foot Skin, External Approach (ICD-10-PCS; principal; 2023-12-15 07:30)
DX: B07.0 Plantar wart (principal); D49.2 Neoplasm of unspecified behavior of bone, soft tissue, and skin; I10 Essential (primary) hypertension; E03.9 Hypothyroidism, unspecified; K21.9 Gastro-esophageal reflux disease without esophagitis; E66.01 Morbid (severe) obesity due to excess calories
CPT/HCPCS: 88304; 11423; J2704; J2001 ×2; J2250; J3010; J1100; J2405; J7120; J0690 ×2; 88305